=== PATIENT | male | born 1990 | race Caucasian/White ===

== ENCOUNTER 2018-02-12 05:43 | Day surgery (SDC) | payer OTHER ==
[~2018-02-12] VITALS: Ht 172.7 cm; Wt 59.0 kg
[2018-02-12] MEDS ORDERED: CIPRO500 MG PO (17:49)
[2018-02-12] MEDS ORDERED: FLAGYL500MG PO (17:49)
[2018-02-12] MEDS ORDERED: PERCOCET 5-3251 EACH PO (17:49)
[2018-02-12] MEDS ORDERED: RECTICARE30 GM TOP (17:49)
== END 2018-02-12 21:00 | disposition home or self-care (01) ==
LOC: ER 05:43 → SEC-K 09:49 → ER 09:49 → SEC-K 15:27 → O/R 15:27 → CIR.AMB 16:00
DX: K61.0 Anal abscess (principal); K62.89 Other specified diseases of anus and rectum

== ENCOUNTER 2018-09-27 17:19 | Emergency (ER) | payer OTHER ==
[~2018-09-27] VITALS: Ht 175.3 cm; Wt 59.9 kg
[~2018-09-27 17:19] MED LIST: CIPRO500 MG PO; FLAGYL500MG PO; PERCOCET 5-3251 EACH PO; RECTICARE30 GM TOP
[2018-09-27] MEDS ORDERED: RISPERDAL0.5 MG (18:08)
[2018-09-27] MEDS ORDERED: PROZAC10 MG (18:08)
[2018-09-27] MEDS ORDERED: CLONAZEPAM1 GM (18:08)
== END 2018-09-27 23:55 | disposition home or self-care (01) ==
LOC: ER 17:19
DX: K60.3 Anal fistula (principal)

== ENCOUNTER 2018-10-15 06:00 | Day surgery (SDC) | payer OTHER ==
[~2018-10-15 06:00] MED LIST changes: +CLONAZEPAM1 GM; +CLONAZEPAM2 M1 PO; +MELATONIN5 M1 PO; +PROZAC10 MG; +REQUIP0.25 MG PO; +RISPERDAL0.5 MG; +TEMAZEPAM15 MG PO; +[UNRECOGNIZED DRUG - OTHER] IV
[2018-10-15] MEDS ORDERED: OXYC1TAB9 PO ×2 (09:30)
[2018-10-15] MEDS ORDERED: METRONIDAZOLE500 MG PO ×2 (09:30)
== END 2018-10-15 13:50 | disposition home or self-care (01) ==
LOC: CIR.AMB 06:00
DX: K60.5 Anorectal fistula (principal)